=== PATIENT | male | born 1975 | race Caucasian/White ===

== ENCOUNTER 2017-05-13 17:40 | Emergency (ER) | payer BC ==
[~2017-05-13] VITALS: Ht 193 cm; Wt 185.0 kg
[~2017-05-13 17:40] MED LIST: BENZONATATE200 MG PO; FLEXERIL PO; FLONASE NASAL50 MCG; LEVAQUIN750 MG PO; MUCINEX600 MG PO; NAPROSYN500 MG PO; PREDNISONE20 MG PO; ULTRAM50 M1 PO
[2017-05-13] MEDS ORDERED: ULTRAM50 M1 PO (18:32)
[2017-05-13 18:40] VITALS: BP 134/92
== END 2017-05-13 18:43 | disposition home or self-care (01) | DRG 563 ==
LOC: ED 17:40
DX: S93.622A Sprain of tarsometatarsal ligament of left foot, initial encounter (principal); M25.572 Pain in left ankle and joints of left foot; X50.1XXA Overexertion from prolonged static or awkward postures, initial encounter; Y93.89 Activity, other specified; Y92.89 Other specified places as the place of occurrence of the external cause

== ENCOUNTER 2018-02-16 10:26 | Emergency (ER) | payer BC ==
[~2018-02-16] VITALS: Ht 193 cm; Wt 180.9 kg
[2018-02-16] MEDS ORDERED: METFORMIN500 MG PO (10:36)
[2018-02-16] MEDS ORDERED: PERCOCET 10/31 COMBO PO (10:42)
[2018-02-16] MEDS ORDERED: MEDDOSEPAK PO (10:42)
[2018-02-16] MEDS ORDERED: TORADOL PO (10:42)
[2018-02-16] MEDS ORDERED: FLEXERIL PO (10:42)
[2018-02-16 11:12] VITALS: BP 135/76
== END 2018-02-16 11:23 | disposition home or self-care (01) | DRG 552 ==
LOC: ED 10:26
DX: M51.16 Intervertebral disc disorders with radiculopathy, lumbar region (principal); E11.9 Type 2 diabetes mellitus without complications

== ENCOUNTER 2018-10-22 12:54 | Emergency (ER) | payer BC ==
[~2018-10-22] VITALS: Ht 193 cm; Wt 175.0 kg
[~2018-10-22 12:54] MED LIST changes: +MEDDOSEPAK PO; +METFORMIN500 MG PO; +PERCOCET 10/31 COMBO PO; +TORADOL PO
[2018-10-22] MEDS ORDERED: PHENTERMINE37.5 MG PO (15:12)
[2018-10-22] MEDS ORDERED: METOPROL TAR25 M1 PO (15:12)
[2018-10-22] MEDS ORDERED: ADULT ASPIRIN E81 MG PO (15:13)
[2018-10-22] MEDS ORDERED: DELTASONE20 MG PO ×2 (15:25→16:02)
[2018-10-22 15:58] VITALS: BP 156/81
== END 2018-10-22 16:02 | disposition home or self-care (01) | DRG 918 ==
LOC: ED 12:54
DX: T63.481A Toxic effect of venom of other arthropod, accidental (unintentional), initial encounter (principal); R06.02 Shortness of breath; R21 Rash and other nonspecific skin eruption; M79.672 Pain in left foot; L53.8 Other specified erythematous conditions; Y92.003 Bedroom of unspecified non-institutional (private) residence as the place of occurrence of the external cause